=== PATIENT | female | born 2000 | race American Indian/Alaskan Native ===

== ENCOUNTER 2020-03-01 21:13 | Emergency (ER) | payer SELFPAY ==
[2020-03-01 23:17] VITALS: BP 109/60
[2020-03-02] MEDS ORDERED: predniSONE 50 MG TAB PO ONE (01:46)
[2020-03-02] MEDS ORDERED: oxyCODONE /ACETAMINOPHEN 5-325MG TAB PO ONE (01:46)
--- NOTE | 2020-03-02 03:11 | Emergency Department Report ---
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 denies: chest pain, cough, difficulty urinating, incontinence, constipation, shortness of breath, syncope - Related Data Previous Rx's Medication Instructions Recorded Last Taken Type Metaxalone [Skelaxin] 800 mg PO TID #20 tablet 03/02/20 Unknown Rx predniSONE [Deltasone] 50 mg PO QDAY #5 tab 03/02/20 Unknown Rx traMADoL [Ultram] 50 mg PO Q6HR PRN #20 tablet 03/02/20 Unknown Rx Allergies Allergy/AdvReac Type Severity Reaction Status Date / Time amoxicillin Allergy Hives Verified 03/01/20 23:14 cefuroxime [From Ceftin] Allergy Hives Verified 03/01/20 23:15 Penicillins Allergy Hives Verified 03/01/20 23:14 Sulfa (Sulfonamide Allergy Hives Verified 03/01/20 23:15 Antibiotics) ED Review of Systems ROS: Stated complaint: LOWER BACK PAIN Other details as noted in HPI Comment: All other systems reviewed and negative ED Past Medical Hx - Past Medical History Previous Medical History?: Yes Additional medical history: Herniated Disc in Back - Surgical History Past Surgical History?: No - Social History Smoking Status: Never Smoker - Medications Home Medications: Home Medications Medication Instructions Recorded Confirmed Last Taken Type Metaxalone [Skelaxin] 800 mg PO TID #20 tablet 03/02/20 Unknown Rx predniSONE [Deltasone] 50 mg PO QDAY #5 tab 03/02/20 Unknown Rx traMADoL [Ultram] 50 mg PO Q6HR PRN #20 tablet 03/02/20 Unknown Rx ED Physical Exam - General Limitations: No Limitations General appearance: alert, in no apparent distress - Head Head exam: Present: atraumatic, normocephalic - Eye Eye exam: Present: normal appearance, PERRL, EOMI Pupils: Present: normal accommodation - ENT ENT exam: Present: normal exam, mucous membranes moist - Neck Neck exam: Present: normal inspection, full ROM - Respiratory Respiratory exam: Present: normal lung sounds bilaterally. Absent: respiratory distress - Cardiovascular Cardiovascular Exam: Present: regular rate, normal rhythm. Absent: systolic murmur, diastolic murmur, rubs, gallop - GI/Abdominal GI/Abdominal exam: Present: soft, normal bowel sounds - Extremities Exam Extremities exam: Present: normal inspection - Back Exam Back exam: Present: normal inspection, paraspinal tenderness, other (Tenderness to the right sacroiliac joint). Absent: CVA tenderness (R), CVA tenderness (L) - Neurological Exam Neurological exam: Present: alert, oriented X3, CN II-XII intact, normal gait - Psychiatric Psychiatric exam: Present: normal affect, normal mood - Skin Skin exam: Present: warm, dry, intact, normal color. Absent: rash ED Course Vital Signs 03/01/20 23:16 Temperature 98.2 F Pulse Rate 77 Respiratory 17 Rate Blood Pressure 109/60 O2 Sat by Pulse 100 Oximetry ED Medical Decision Making - Medical Decision Making Pt presents the emergency department complaining of back pain most consistent with musculoskeletal/herniated disc back pain Most Consistent with Strain/Contusion. Differential Diagnosis Includes Lumbar Go Versus Musculoskeletal Spasm, Strain Versus Sciatica. No Back Pain Red Flags on History or Physical. Presentation Not Consistent with Malignancy, Fracture, Cauda Equina, Abdominal Aortic Aneurysm, Viscus Perforation, Pulmonary Embolism, Renal Colic, Pyelonephritis. Patient reports no B symptoms, trauma trauma, incontinence, saddle anesthesia, distal weakness, urinary symptoms and is a febrile. Critical care attestation.: If time is entered above; I have spent that time in minutes in the direct care of this critically ill patient, excluding procedure time. ED Disposition Clinical Impression: Lumbago Disposition: TO HOME OR SELFCARE Is pt being admited?: No Does the pt Need Aspirin: No Condition: Stable Instructions: Chronic Back Pain, [id number], Chronic Back Pain, Radicular Pain, Back Injury Prevention, Myelogram Prescriptions: predniSONE [Deltasone] 50 mg PO QDAY #5 tab Metaxalone [Skelaxin] 800 mg PO TID #20 tablet traMADoL [Ultram] 50 mg PO Q6HR PRN #20 tablet PRN Reason: Pain Referrals: PRIMARY CAREMD [Primary Care Provider] - 3-5 Days MARYLIN SANCHES MD [Staff Physician] - 3-5 Days
== END 2020-03-02 03:20 | disposition home or self-care (01) ==
LOC: ED 21:13
DX: M54.5 Low back pain (principal); Z88.1 Allergy status to other antibiotic agents; Z88.0 Allergy status to penicillin; Z88.6 Allergy status to analgesic agent
CPT/HCPCS: 99282; J7512

== ENCOUNTER 2020-03-14 17:50 | Emergency (ER) | payer SELFPAY ==
[2020-03-14 18:49] VITALS: BP 122/72
--- NOTE | 2020-03-14 19:50 | Emergency Department Report ---
ED General Adult HPI - General Chief complaint: Urogenital-Female Stated complaint: OUTBREAK PUI?: No Time Seen by Provider: 03/14/20 19:44 Source: patient Mode of arrival: Ambulatory Limitations: No Limitations - History of Present Illness Initial comments: 19 y/o female -[place] female presents to the emergency room reporting she is having a herpes outbreak and she has has lower back pain when lifting heavy objects at work. Patient does report a history of herniated disks. Patient is taking nothing for her's pain or symptoms. Onset/Timin -: days(s) Location: back, genitals Severity scale (0 -10): 7 Quality: burning, stabbing Consistency: constant Improves with: none Associated Symptoms: denies other symptoms - Related Data Previous Rx's Medication Instructions Recorded Last Taken Type Metaxalone [Skelaxin] 800 mg PO TID #20 tablet 03/02/20 Unknown Rx predniSONE [Deltasone] 50 mg PO QDAY #5 tab 03/02/20 Unknown Rx traMADoL [Ultram] 50 mg PO Q6HR PRN #20 tablet 03/02/20 Unknown Rx Ibuprofen [Motrin 600 MG tab] 600 mg PO Q8H PRN #30 tablet 03/14/20 Unknown Rx Valacyclovir HCl [Valtrex] 1,000 mg PO BID #20 tablet 03/14/20 Unknown Rx Allergies Allergy/AdvReac Type Severity Reaction Status Date / Time amoxicillin Allergy Hives Verified 03/01/20 23:14 cefuroxime [From Ceftin] Allergy Hives Verified 03/01/20 23:15 Penicillins Allergy Hives Verified 03/01/20 23:14 Sulfa (Sulfonamide Allergy Hives Verified 03/01/20 23:15 Antibiotics) ED Review of Systems ROS: Stated complaint: OUTBREAK Other details as noted in HPI Comment: All other systems reviewed and negative ED Past Medical Hx - Past Medical History Previous Medical History?: Yes Additional medical history: Herniated Disc in Back. Genital herpes - Surgical History Past Surgical History?: No - Social History Smoking Status: Never Smoker Substance Use Type: None - Medications Home Medications: Home Medications Medication Instructions Recorded Confirmed Last Taken Type Metaxalone [Skelaxin] 800 mg PO TID #20 tablet 03/02/20 Unknown Rx predniSONE [Deltasone] 50 mg PO QDAY #5 tab 03/02/20 Unknown Rx traMADoL [Ultram] 50 mg PO Q6HR PRN #20 tablet 03/02/20 Unknown Rx Ibuprofen [Motrin 600 MG tab] 600 mg PO Q8H PRN #30 tablet 03/14/20 Unknown Rx Valacyclovir HCl [Valtrex] 1,000 mg PO BID #20 tablet 03/14/20 Unknown Rx ED Physical Exam - General Limitations: No Limitations General appearance: alert, in no apparent distress - Head Head exam: Present: atraumatic, normocephalic - Eye Eye exam: Present: normal appearance - ENT ENT exam: Present: mucous membranes moist - Neck Neck exam: Present: normal inspection, full ROM - Respiratory Respiratory exam: Absent: accessory muscle use - Cardiovascular Cardiovascular Exam: Present: regular rate, normal rhythm. Absent: systolic murmur, diastolic murmur, rubs, gallop - GI/Abdominal GI/Abdominal exam: Present: soft, normal bowel sounds - Extremities Exam Extremities exam: Present: full ROM - Back Exam Back exam: Present: full ROM - Expanded Back Exam Expanded Back exam: Sciatic Notch Tenderness: Right, Positive Straight Leg Raise: Right - Neurological Exam Neurological exam: Present: alert, oriented X3, normal gait - Psychiatric Psychiatric exam: Present: normal affect, normal mood ED Course Vital Signs 03/14/20 18:47 Pulse Rate 108 H Respiratory 16 Rate Blood Pressure 122/72 [Right] O2 Sat by Pulse 100 Oximetry ED Medical Decision Making - Medical Decision Making 19 y/o female -[place] female presents to the emergency room reporting she is having a herpes outbreak and she has has lower back pain when lifting heavy objects at work. Patient does report a history of herniated disks. Patient is taking nothing for her's pain or symptoms. Patient will be refilled on Valtrex 1 g daily and ibuprofen for pain management. Instructed to increase her fluid intake eat before taking medications. Follow-up with a primary care provider. Critical care attestation.: If time is entered above; I have spent that time in minutes in the direct care of this critically ill patient, excluding procedure time. 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 Follow-up with your primary care provider. Prescriptions: Ibuprofen [Motrin 600 MG tab] 600 mg PO Q8H PRN #30 tablet PRN Reason: Pain Valacyclovir HCl [Valtrex] 1,000 mg PO BID #20 tablet Referrals: [facility] [Provider Group] - 3-5 Days Forms: Work/School Release Form(ED)
== END 2020-03-14 20:00 | disposition home or self-care (01) ==
LOC: ED 17:50
DX: B00.89 Other herpesviral infection (principal); M54.5 Low back pain; Z88.0 Allergy status to penicillin; Z88.1 Allergy status to other antibiotic agents; Z88.8 Allergy status to other drugs, medicaments and biological substances
CPT/HCPCS: 99282